=== PATIENT | female | born 1940 ===

== ENCOUNTER 2023-04-09 18:32 | Inpatient (IN) | payer OTHER ==
[~2023-04-09] VITALS: Ht 167.6 cm; Wt 63.5 kg
[2023-04-09] MEDS ORDERED: hydrALAZINE HCL 10 MG TAB PO PRN (20:30)
[2023-04-09] MEDS ORDERED: ACETAMINOPHEN 325 MG TAB PO PRN (20:30)
[2023-04-09] MEDS ORDERED: MORPHINE SULFATE INJ 2 MG/ml SYRG IV PRN (20:30)
[2023-04-09] MEDS ORDERED: ONDANSETRON HCL 4 MG/2 ML VIAL IV PRN (20:30)
[2023-04-09] MEDS ORDERED: HYDROcodone-ACET 5/325MG TAB PO PRN (20:30)
[2023-04-09 21:00] VITALS: BP 144/64
[2023-04-09 21:23] LABS: Basophils # (auto) 0.1 10 ^3/uL (0-0.2); Basophils % (auto) 0.6 % (0.0-2.0); Eosinophils # (auto) 0.2 10 ^3/uL (0-0.8); Eosinophils % (auto) 1.8 % (0.0-7.0); Hematocrit 33.7 % (36.0-46.0); Hemoglobin 10.9 g/dL (12.2-16.2); Lymphocytes # (auto) 1.6 10 ^3/uL (0.4-5.4); Lymphocytes % (auto) 17.4 % (10.0-50.0); Mean Corpuscular Hemoglobin 30.6 pg (28.0-32.0); Mean Corpuscular Hgb Conc. 32.3 g/dL (32.0-36.0); Mean Corpuscular Volume 94.9 fL (80.0-100.0); Monocytes # (auto) 0.6 10 ^3/uL (0-1.3); Monocytes % (auto) 7.1 % (0.0-12.0); Neutrophils # (auto) 6.5 10 ^3/uL (1.6-8.6); Neutrophils % (auto) 73.1 % (37.0-80.0); Nucleated Red Blood Cells % 0.1 %; Red Blood Cells 3.55 10^6/uL (4.0-5.20); Red Cell Distribution Width 14.2 % (11.8-14.3); White Blood Cell 8.9 10^3/uL (4.4-10.8)
[2023-04-09] MEDS ORDERED: ATOR20TA50 PO (21:25)
[2023-04-09] MEDS ORDERED: LISI40TA16 PO (21:25)
[2023-04-09] MEDS ORDERED: OXYB5TAB10 PO (21:25)
[2023-04-09] MEDS ORDERED: FAMO20TA10 PO (21:25)
[2023-04-09] MEDS ORDERED: AMLO1TAB23 PO (21:25)
[2023-04-09] MEDS ORDERED: OMEP1CAP70 PO (21:25)
[2023-04-09] MEDS ORDERED: MIRA50TA PO (21:25)
[2023-04-09] MEDS ORDERED: PNEUMOCOCCAL VACC POLYS 25 MCG/0.5 ML VIAL IM ONE (21:30)
[2023-04-09 21:41] LABS: BUN/Creatinine Ratio 15.4 (10.0-20.0); Calcium 9.2 mg/dL (8.5-10.1)
[2023-04-09] MEDS ORDERED: metroNIDAZOLE 500MG/100ML 100 ML IV SCH (22:00)
[2023-04-09] MEDS ORDERED: PANTOPRAZOLE 40 MG TAB PO SCH (22:00)
[2023-04-09 22:41] VITALS: BP 144/64
[2023-04-10] MEDS: ATORVASTATIN 20 MG TAB PO SCH ×2 (00:08→22:37)
[2023-04-10] MEDS: LISINOPRIL 20 MG TAB PO SCH ×2 (00:09→09:19)
[2023-04-10] MEDS: amLODIPine BESYLATE 5 MG TAB PO SCH ×2 (00:10→09:18)
[2023-04-10] MEDS: SODIUM CHLORIDE 0.9% 1,000 ML IV SCH ×3 (00:14→23:10)
[2023-04-10] MEDS: cefTRIAXone 1GM/50ML D5W 50 ML IV SCH ×2 (00:31→22:37)
[2023-04-10 05:00] VITALS: BP 123/51
[2023-04-10 05:17] LABS: Basophils # (auto) 0.1 10 ^3/uL (0-0.2); Basophils % (auto) 0.9 % (0.0-2.0); Eosinophils # (auto) 0.1 10 ^3/uL (0-0.8); Eosinophils % (auto) 1.3 % (0.0-7.0); Hematocrit 29.9 % (36.0-46.0); Hemoglobin 10.2 g/dL (12.2-16.2); Lymphocytes # (auto) 1.6 10 ^3/uL (0.4-5.4); Lymphocytes % (auto) 23.5 % (10.0-50.0); Mean Corpuscular Hemoglobin 31.2 pg (28.0-32.0); Mean Corpuscular Hgb Conc. 34.1 g/dL (32.0-36.0); Mean Corpuscular Volume 91.3 fL (80.0-100.0); Monocytes # (auto) 0.6 10 ^3/uL (0-1.3); Monocytes % (auto) 8.4 % (0.0-12.0); Neutrophils # (auto) 4.6 10 ^3/uL (1.6-8.6); Neutrophils % (auto) 65.9 % (37.0-80.0); Nucleated Red Blood Cells % 0.1 %; Red Blood Cells 3.27 10^6/uL (4.0-5.20); Red Cell Distribution Width 13.7 % (11.8-14.3); White Blood Cell 6.9 10^3/uL (4.4-10.8)
[2023-04-10 05:30] LABS: Potassium 3.8 mmol/L (3.5-5.1)
[2023-04-10 05:37] LABS: BUN/Creatinine Ratio 15.1 (10.0-20.0); Calcium 8.8 mg/dL (8.5-10.1)
[2023-04-10 08:00] VITALS: BP 116/52
[2023-04-10 08:50] VITALS: BP 116/52
[2023-04-10] MEDS: metroNIDAZOLE 500MG/100ML 100 ML IV SCH ×2 (12:47→20:24)
[2023-04-10 13:00] VITALS: BP 126/53
[2023-04-10] MEDS ORDERED: HYDROcodone-ACET 5/325MG TAB PO PRN (16:30)
[2023-04-10 17:00] VITALS: BP 122/57
[2023-04-10] MEDS: PANTOPRAZOLE 40 MG TAB PO SCH (21:07)
[2023-04-10 22:00] VITALS: BP 128/57
[2023-04-11 05:00] VITALS: BP 105/41
[2023-04-11 05:58] LABS: Basophils # (auto) 0.1 10 ^3/uL (0-0.2); Basophils % (auto) 0.8 % (0.0-2.0); Eosinophils # (auto) 0.2 10 ^3/uL (0-0.8); Hematocrit 28.5 % (36.0-46.0); Hemoglobin 9.7 g/dL (12.2-16.2); Lymphocytes # (auto) 1.2 10 ^3/uL (0.4-5.4); Lymphocytes % (auto) 17.7 % (10.0-50.0); Mean Corpuscular Hemoglobin 31.3 pg (28.0-32.0); Mean Corpuscular Hgb Conc. 34.1 g/dL (32.0-36.0); Mean Corpuscular Volume 91.7 fL (80.0-100.0); Monocytes # (auto) 0.8 10 ^3/uL (0-1.3); Monocytes % (auto) 10.9 % (0.0-12.0); Neutrophils # (auto) 4.7 10 ^3/uL (1.6-8.6); Neutrophils % (auto) 67.6 % (37.0-80.0); Nucleated Red Blood Cells % 0.1 %; Red Blood Cells 3.11 10^6/uL (4.0-5.20); Red Cell Distribution Width 13.8 % (11.8-14.3); White Blood Cell 6.9 10^3/uL (4.4-10.8)
[2023-04-11 06:21] LABS: BUN/Creatinine Ratio 16.2 (10.0-20.0); Calcium 8.4 mg/dL (8.5-10.1); Potassium 3.9 mmol/L (3.5-5.1)
[2023-04-11] MEDS: metroNIDAZOLE 500MG/100ML 100 ML IV SCH ×2 (07:06→12:24)
[2023-04-11 09:00] VITALS: BP 106/58
[2023-04-11] MEDS: LISINOPRIL 20 MG TAB PO SCH (10:00)
[2023-04-11] MEDS: amLODIPine BESYLATE 5 MG TAB PO SCH (10:00)
[2023-04-11] MEDS: PANTOPRAZOLE 40 MG TAB PO SCH (12:24)
[2023-04-11 12:25] LABS: Hepatitis C Antibody Negative (Negative)
[2023-04-11] MEDS: SODIUM CHLORIDE 0.9% 1,000 ML IV SCH (12:26)
[2023-04-11 13:00] VITALS: BP 115/58
[2023-04-11] MEDS ORDERED: AUG875T PO (14:07)
[2023-04-11 15:30] VITALS: BP 115/58
== END 2023-04-11 16:15 | disposition home or self-care (01) | DRG 690 ==
LOC: WEST WING 19:53 → TELE-WESTW 22:11
PROVIDERS: ADMIT Internal Medicine; ATTEND Internal Medicine
DX: N30.00 Acute cystitis without hematuria (principal); N17.9 Acute kidney failure, unspecified; K57.32 Diverticulitis of large intestine without perforation or abscess without bleeding; Z87.440 Personal history of urinary (tract) infections; Z87.442 Personal history of urinary calculi; Z88.5 Allergy status to narcotic agent; Z23 Encounter for immunization
CPT/HCPCS: 36415; 80048; 83605; 85025; 86803; 87040; 87340; G0378; J0696; J2405; J3490